=== PATIENT | male | born 1970 | race Caucasian/White ===

== ENCOUNTER 2024-09-26 03:08 | Inpatient (IN) ==
--- NOTE | 2024-09-26 03:33 | Emergency Department Note ---
History of Present Illness General Chief complaint: Cardiac Assessment Stated complaint: BELIEVES THEY ARE HAVING A HEART ATTACK Time Seen by Provider: 09/26/24 03:19 History of Present Illness Maximum Pain Intensity: 7 This 54-year-old male that has not seen a doctor in several years presents ER complaint of severe epigastric pain that radiates to his back. He had zoidu hotdogs for dinner. He does chew tobacco. He drinks alcohol on the weekends. No drug use. Patient denies fever, chills, cough, congestion, history of similar symptoms in the past. No prior heart attack or stroke. Allergies Allergy/AdvReac Type Severity Reaction Status Date / Time No Known Allergies Allergy Unverified 11/08/16 13:08 Past Med/Surg History Problem List Biliary colic (Acute) Acute epigastric pain (Acute) No known health problems Social History Smoking Status: Never smoker Preferred Language: Paraguayan Feels Safe at Home: Yes Review of Systems A total of 10 systems reviewed and were otherwise negative Physical Exam Vital Signs Vital Signs - 24 hr 09/26/24 03:15 09/26/24 03:15 09/26/24 03:18 Temperature 37 C Temperature Source Oral Pulse Rate 71 81 70 Pulse Rate from SpO2 Sensor 70 Respiratory Rate 16 29 H Respiratory Effort / Characteristics Non-Labored Respiratory Depth Normal Blood Pressure 210/120 H 210/120 H Blood Pressure Mean 150 150 Pulse Oximetry 99 100 Oxygen Delivery Method Room Air Sepsis Recent Fever Within 48 Hours No Sepsis New/Unexplained Change in Mental Status No Sepsis Action Taken by Nursing No Action Required 09/26/24 03:30 09/26/24 04:03 09/26/24 05:00 Temperature Temperature Source Pulse Rate 69 62 60 Pulse Rate from SpO2 Sensor 70 62 61 Respiratory Rate 16 24 30 H Respiratory Effort / Characteristics Respiratory Depth Blood Pressure 150/99 H 169/102 H 146/100 H Blood Pressure Mean 116 124 115 Pulse Oximetry 98 98 98 Oxygen Delivery Method Sepsis Recent Fever Within 48 Hours Sepsis New/Unexplained Change in Mental Status Sepsis Action Taken by Nursing VITALS: Vitals are noted on the nurse's note and reviewed by myself. Vital signs hypertensive GENERAL: White male anxious appearing, in no acute distress, nondiaphoretic, well-developed well-nourished. SKIN: Capillary reflex less than 2 seconds. HEENT: Normocephalic. PERRLA. EOMI. Nares patent. Mucous membranes moist. Neck is supple without nuchal rigidity. HEART: Regular rate and rhythm LUNGS: Clear to auscultation bilaterally without wheezes, rales or rhonchi. No retractions or accessory muscle use. ABDOMEN: Positive bowel sounds x 4. Normal tympanic percussion. Soft, tender epigastric region without palpable mass, without masses or organomegaly. Toro sign negative. No guarding or rebound tenderness. no CVA tenderness MUSCULOSKELETAL: No gross musculoskeletal defects. NEURO: Patient was alert and oriented to person place and time. No focal neurological deficits. Course Administered Medications Sodium Chloride (Nss) 1,000 mls @ 80 mls/hr IV .[id number] BANDAR Stop: 09/27/24 04:59 Last Admin: 09/26/24 05:38 Dose: 80 mls/hr Documented By: HANNAH Discontinued Medications Famotidine (Pepcid 20mg Iv Push) 20 mg in 5 mls @ 2.5 mls/min IV NOW STA Stop: 09/26/24 04:16 Last Admin: 09/26/24 04:33 Dose: 2.5 mls/min Documented By: HANNAH Cefoxitin Sodium (Mefoxin) 2,000 mg in 60 mls @ 100 mls/hr IV NOW STA Stop: 09/26/24 05:02 Last Infusion: 09/26/24 05:13 Dose: Infused Documented By: Admin: 09/26/24 04:33 Dose: 100 mls/hr Documented By: HANNAH Ioversol (Optiray 320 125ml) 125 ml IV ONCE ONE Stop: 09/26/24 03:59 Last Admin: 09/26/24 03:58 Dose: 118 ml Documented By: KANNAN Morphine Sulfate (Morphine Sulfate 4 Mg/Ml 1 Ml Carp\Vial) 4 mg IV NOW STA Stop: 09/26/24 03:54 Last Admin: 09/26/24 04:05 Dose: 4 mg Documented By: HANNAH Morphine Sulfate (Morphine Sulfate 4 Mg/Ml 1 Ml Carp\Vial) 4 mg IV NOW STA Stop: 09/26/24 04:16 Last Admin: 09/26/24 05:10 Dose: 4 mg Documented By: HANNAH Nitroglycerin (Nitroglycerin Sl 0.4 Mg/Tab Tab) 0.4 mg SL NOW STA Stop: 09/26/24 03:29 Last Admin: 09/26/24 04:03 Dose: Not Given Documented By: HANNAH Simethicone (Simethicone 80 Mg Chew) 80 mg PO NOW ONE Stop: 09/26/24 03:28 Last Admin: 09/26/24 04:05 Dose: 80 mg Documented By: HANNAH Medical Decision Making Medical Records Attestation: I reviewed the patient's medical records. Home Medications Current Medication List: was personally reviewed by me Laboratory Data Attestation: I reviewed the patient's lab results. 09/26/24 03:20 09/26/24 03:20 Lab Results 09/26/24 09/26/24 Range/Units 03:20 03:31 WBC 8.16 (4.8-10.8) K/ul RBC 5.00 (4.70-6.10) M/uL Hgb 14.8 (14.0-18.0) g/dl POC Hgb 14.6 (14.0-18.0) g/dl Hct 43.4 (42.0-52.0) % POC Hct 43 (42-52) % MCV 86.8 (80.0-100.0) fL MCH 29.6 (25.0-34.0) pg MCHC 34.1 (32.0-36.0) g/dL RDW Std Deviation 39.4 (36.4-46.3) fL RDW Coeff of Johnie 12.6 (11.5-14.5) % Plt Count 310 (130-400) K/uL MPV 10.0 (9.4-12.4) fL Immature Gran % (Auto) 0.4 % Neut % (Auto) 58.9 % Lymph % (Auto) 27.3 % [place] % (Auto) 10.8 % Eos % (Auto) 2.0 % Baso % (Auto) 0.6 % Neut # (Auto) 4.81 (1.40-6.50) K/uL Lymph # (Auto) 2.23 (1.20-3.40) K/uL [place] # (Auto) 0.88 H (0.11-0.59) K/uL Eos # (Auto) 0.16 (0.00-0.50) K/uL Baso # (Auto) 0.05 (0.00-0.20) K/uL Immature Gran # (Auto) 0.03 (0.01-0.20) K/uL POC Sodium 139 (135-144) mmol/L Sodium 139 (136-145) mmol/L POC Potassium 3.6 (3.3-5.0) mmol/L Potassium 3.5 (3.5-5.1) mmol/L POC Chloride 102 (101-112) mmol/L Chloride 102 (98-107) mmol/L Carbon Dioxide 26 (21-32) mmol/L POC Total CO2 24 (24-31) mmol/L Anion Gap 11 (3-11) POC Anion Gap 18.0 (16-25) mmol/L POC BUN 18 (7-18) mg/dl BUN 17 (6-23) mg/dl Creatinine 0.95 (0.6-1.4) mg/dl POC Creatinine 1.0 (0.6-1.3) mg/dl Est Cr Clr Drug Dosing 106.3 ml/min eGFR 95.71 BUN/Creatinine Ratio 17.9 (10-20) Glucose 128 H (70-99(Fasting)) mg/dl POC Glucose (other) 136 H (70-99) mg/dl Calcium 10.2 (8.6-10.3) mg/dl POC Ioniz Calcium Masha 1.12 (1.12-1.32) mmol/l Total Bilirubin 0.4 (0.2-1.0) mg/dl AST 25 (13-39) U/L ALT 27 (7-52) U/L Alkaline Phosphatase 55 (34-104) U/L Troponin I High Sens 4.2 (0-20) pg/ml Total Protein 8.2 (6.0-8.3) gm/dl Albumin 4.8 (3.4-5.0) gm/dl Globulin 3.4 (2.5-4.0) gm/dl Albumin/Globulin Ratio 1.4 (0.9-2) Lipase 23 (11-82) U/L Imaging Data Attestation: I personally reviewed and interpreted this imaging study as follows: Radiologist's Impression: Chest CTA 09/26/24 03:27 Exam(s): CTA CHEST W/WO Contrast IV Amt: 118 ML OPTIRAY 320 EXAM: CT Angiography Chest Without and With Intravenous Contrast CLINICAL HISTORY: Reason for exam: severe pain to back. TECHNIQUE: Axial computed tomographic angiography images of the chest without and with intravenous contrast. CTDI is 26.33 mGy and DLP is 863.55 mGy-cm. Automated exposure control was utilized for the study. A dose lowering technique was utilized adhering to the principles of ALARA. MIP reconstructed images were created and reviewed. CONTRAST: Patient received 118 ML OPTIRAY 320 of IV contrast COMPARISON: No relevant prior studies available. FINDINGS: Pulmonary arteries: Unremarkable. No pulmonary embolism. Aorta: No acute findings. No thoracic aortic aneurysm or dissection. Lungs: Unremarkable. No mass. No consolidation. Pleural space: Unremarkable. No significant effusion. No pneumothorax. Heart: Unremarkable. No cardiomegaly. No significant pericardial effusion. No evidence of RV dysfunction. Bones/joints: No acute fracture. No dislocation. Soft tissues: Unremarkable. Lymph nodes: Unremarkable. No enlarged lymph nodes. Gallbladder and bile ducts: Gallstone near the neck of the gallbladder. There is a suggestion of at least mild gallbladder wall thickening. IMPRESSION: No evidence of thoracic aortic aneurysm or dissection. Gallstone. Suggestion of gallbladder wall thickening. Consider further evaluation with sonography. Electronically signed by: Khanh Harris MD 09/26/24 04:24 AM [facility] Narrative Prior records/ancillary studies reviewed. Triage Nursing notes reviewed. Additional history obtained from family. The patient's history was concerning for chest pain. Differential diagnosis: Etiologies such as cardiac ischemia, aortic dissection, pulmonary embolism, pneumonia, pneumothorax, musculoskeletal, infections, pericarditis, myocarditis, esophageal rupture, gastrointestinal, as well as others were entertained. Physical examination: As above. ER treatment provided: An order was placed for continuous cardiac monitoring. The monitor shows a rate of 60-100 with a sinus rhythm per my interpretation. Morphine, Zofran and simethicone were ordered Protonix and Pepcid were ordered Limited Point of Care FAST Ultrasound performed by me: Indication: Rule out dissection Findings: Limited cardiac ultrasonography via subxiphoid and parasternal long view showed cardiac wall motion activity, no pericardial fluid, no tamponade. Limited chest ultrasound revealed bilateral lung sliding. Limited abdominal ultrasound revealed no free fluid within Kulkarni's pouch, splenorenal space, or the pouch of [place]. Impression: Negative FAST exam. On reassessment the patient felt better. Diagnostic interpretation by me: #1 the electrocardiogram was Ordered for chest pain EKG: Normal sinus, incomplete right bundle, minimal ST elevation in V2 and V3, rate of 81. No old EKG. Impression normal sinus rhythm with a incomplete right bundle with minimal ST elevation in V2 and V3 independently interpreted by myself I think arrhythmia is unlikely. EKG shows normal sinus rhythm with no interval abnormalities such as QT prolongation or WPW. There are no findings to suggest Brugada syndrome. Cardiac monitoring in the emergency department reveals no tachycardic or bradycardic dysrhythmia. Hypertrophic cardiomyopathy was considered but there are no clear historical elements pointing toward this. EKG is not suggestive. The QRS voltage is not extremely large and there are no suggestive Q waves. #2 EKG ordered for chest pain EKG: Normal sinus, incomplete right bundle, no acute ST-T wave changes, rate of 61. Impression normal sinus rhythm incomplete right bundle independently interpreted by myself The labs Independently Interpreted by myself revealed negative troponin. Stable H&H. Normal LFTs Imaging studies: Chest x-ray with no acute consolidation, pneumothorax or free air per my independent interpretation CT and ultrasound were reviewed and read by radiology as above HEART SCORE: Hx: high/mod/low suspicion: 1 ECG: ST depression/nonspecific changes/normal: 1 Age: Greater than 65/45-64/less than 45: 1 Risk factors: (Hypertension, hyperlipidemia, diabetes, coronary disease, tobacco use, cocaine use): 1 Troponin: Greater than 2 times normal limits/1-2 times normal limits/normal: 0 Total: 4 Consultation: A consultation was placed with the surgical team. The case was discussed and diagnostics were reviewed. The patient was evaluated in the ER for further treatment. Exam and history seem consistent with acute epigastric pain with concerns for acute cholecystitis. Patient was medicated as above. He was still in severe amount of pain. EKG is unchanged. Negative troponin. Stable labs. Surgery was consulted and will evaluate the patient. Patient is agreeable to treatment plan of admission. By the evaluation outlined above emergent etiologies such as cardiac ischemia, aortic dissection, pulmonary embolism, pneumonia, pneumothorax, pericarditis, myocarditis, gastrointestinal, as well as others were deemed relatively unlikely. The pt informed about the findings as listed above. All questions were answered and pleased with the treatment. The chart was completed utilizing [employer] Speech voice recognition software. Grammatical errors, random word insertions, pronoun errors, and incomplete sentences are an occassional consequence of this system due to software limitations, ambient noise, and hardware issues. Any formal questions or concerns about the content, text, or information contained within the body of this dictation should be directly addressed to the physician speech pathologist assistant for clarification. Impression & Plan Acute epigastric pain, Biliary colic Discharge Plan Visit Data Chief Complaint: Cardiac Assessment Stated Complaint: BELIEVES THEY ARE HAVING A HEART ATTACK ED Provider: Coby Cheek ED Midlevel Provider: Ena Johnson Discharge Problem: Acute epigastric pain, Biliary colic Patient Disposition: Being Evaluated by Surgeon Condition: Good
[2024-09-26 03:36] LABS: Basophils # (auto) 0.05 K/uL (0.00-0.20); Basophils % (auto) 0.6 %; Eosinophils # (auto) 0.16 K/uL (0.00-0.50); Hematocrit (blood only) 43.4 % (42.0-52.0); Hemoglobin 14.8 g/dl (14.0-18.0); Immature Granulocytes # (auto) 0.03 K/uL (0.01-0.20); Immature Granulocytes % (auto) 0.4 %; Lymphocytes # (auto) 2.23 K/uL (1.20-3.40); Lymphocytes % (auto) 27.3 %; Mean Corpuscular Hemoglobin 29.6 pg (25.0-34.0); Mean Corpuscular Hgb Conc 34.1 g/dL (32.0-36.0); Mean Corpuscular Volume 86.8 fL (80.0-100.0); Monocytes # (auto) 0.88 K/uL (0.11-0.59); Monocytes % (auto) 10.8 %; Neutrophils # (auto) 4.81 K/uL (1.40-6.50); Neutrophils % (auto) 58.9 %; Platelet Count 310 K/uL (130-400); RDW Coefficient of Variation 12.6 % (11.5-14.5); RDW Standard Deviation 39.4 fL (36.4-46.3); White Blood Count 8.16 K/ul (4.8-10.8)
[2024-09-26 03:43] LABS: iSTAT Hemoglobin 14.6 g/dl (14.0-18.0); iSTAT Ionized Calcium 1.12 mmol/l (1.12-1.32); iSTAT Potassium 3.6 mmol/L (3.3-5.0)
[2024-09-26 03:55] LABS: Albumin Globulin Ratio 1.4 (0.9-2); Albumin Level 4.8 gm/dl (3.4-5.0); BUN Creatinine Ratio 17.9 (10-20); Bilirubin,Total 0.4 mg/dl (0.2-1.0); Calcium 10.2 mg/dl (8.6-10.3); Creatinine Clr Calc Pharmacy 106.3 ml/min; Globulin 3.4 gm/dl (2.5-4.0); Potassium 3.5 mmol/L (3.5-5.1); Total Protein 8.2 gm/dl (6.0-8.3)
[2024-09-26] MEDS: OPTIRAY 320 125ml IV ONE (03:58)
[2024-09-26 04:02] LABS: Troponin I High Sensitivity 4.2 pg/ml (0-20)
[2024-09-26] MEDS: NITROGLYCERIN SL 0.4 MG/TAB TAB SL STA (04:03)
[2024-09-26] MEDS: MoRPHine SULFATE 4 MG/ML 1 ML CARP\\VIAL IV STA ×2 (04:05→05:10)
[2024-09-26] MEDS: SIMETHICONE 80 MG CHEW PO ONE (04:05)
--- NOTE | 2024-09-26 04:25 | CT Scan Report ---
Exam(s): CTA CHEST W/WO Contrast IV Amt: 118 ML OPTIRAY 320 EXAM: CT Angiography Chest Without and With Intravenous Contrast CLINICAL HISTORY: Reason for exam: severe pain to back. TECHNIQUE: Axial computed tomographic angiography images of the chest without and with intravenous contrast. CTDI is 26.33 mGy and DLP is 863.55 mGy-cm. Automated exposure control was utilized for the study. A dose lowering technique was utilized adhering to the principles of ALARA. MIP reconstructed images were created and reviewed. CONTRAST: Patient received 118 ML OPTIRAY 320 of IV contrast COMPARISON: No relevant prior studies available. FINDINGS: Pulmonary arteries: Unremarkable. No pulmonary embolism. Aorta: No acute findings. No thoracic aortic aneurysm or dissection. Lungs: Unremarkable. No mass. No consolidation. Pleural space: Unremarkable. No significant effusion. No pneumothorax. Heart: Unremarkable. No cardiomegaly. No significant pericardial effusion. No evidence of RV dysfunction. Bones/joints: No acute fracture. No dislocation. Soft tissues: Unremarkable. Lymph nodes: Unremarkable. No enlarged lymph nodes. Gallbladder and bile ducts: Gallstone near the neck of the gallbladder. There is a suggestion of at least mild gallbladder wall thickening. IMPRESSION: No evidence of thoracic aortic aneurysm or dissection. Gallstone. Suggestion of gallbladder wall thickening. Consider further evaluation with sonography. Electronically signed by: Khanh Harris MD 09/26/24 04:24 AM
[2024-09-26] MEDS: cefOXitin 2,000 MG/60 ML BAG IV STA (04:33)
[2024-09-26] MEDS: FAMOTIDINE 20MG IV PUSH 20 MG/5 ML SYR IV STA (04:33)
[2024-09-26] MEDS ORDERED: HYDROmorphone INJ 0.5 MG/0.5 ML SYR IV PRN (04:55)
[2024-09-26] MEDS ORDERED: ACETAMINOPHEN 1,000 MG/100 ML VIAL IV PRN (04:58)
[2024-09-26] MEDS ORDERED: MoRPHine SULFATE 4 MG/ML 1 ML CARP\\VIAL IV PRN ×2 (04:58→11:47)
[2024-09-26] MEDS ORDERED: ONDANSETRON INJ 2 MG/ML 2 ML VIAL IV PRN ×2 (04:58→08:03)
--- NOTE | 2024-09-26 04:58 | History & Physical Report ---
Date of Service September 26, 2024 Assessment & Plan (1) Biliary colic: Plan: Due to the patient's findings on imaging and his presenting symptomatology he will be admitted to the surgical service on a MedSurg/telemetry floor proceeding as follows: Analgesics will be provided Antiemetics to be provided He will be made n.p.o. Will hydrate gently with IV fluids while he is n.p.o. Antibiotics will be continuedcefoxitin has been initiated in the emergency department As the patient has not seen a doctor in several years and he did have some radiation of the pain into his chest along with the fact that he has a significant family history of coronary artery disease and uses smokeless tobacco we will request a medical consultation for further evaluation of this. I discussed this case with the hospitalist team. They have requested that I order a repeat troponin and I have ordered this lab to be drawn at 8:00 AM this morning. Pending his medical evaluation he will tentatively be scheduled for cholecystectomy with Dr. Alcala on 09/26/2024. Additional recommendations will be forthcoming based on the patient's pending medical evaluation and further clinical course as it unfolds Will use SCDs for DVT prevention, no chemical means due to potential surgery He will be a level 1 full code History of Present Illness Chief Complaint: Biliary colic Primary Care Provider: NO PCP This is a 54-year-old male who presented to the emergency department secondary to epigastric/upper abdominal pain that has been present for several days. The patient notes that the pain seems to be exacerbated after eating and seems to radiate into the left side of his chest. He has had some associated nausea and vomiting but denies any fevers, shakes, or chills. Prior to this symptomatology beginning several days ago he has not noted any postprandial pain in the preceding weeks to months. Patient notes that he has never had any abdominal surgery. I did asked the patient about his past medical history and he denies any known medical problems or taking any medicines. He does admit that he has not seen a doctor in "many years". Patient notes that he does have a history of chewing tobacco but does not smoke cigarettes. He notes that from time to time if he goes up and down steps he does get somewhat short winded. He notes he can walk easily 1 mile on a flat surface without chest pain or shortness of breath. Upon further questioning though, he does note an occasional what he describes as a "twinge" of chest discomfort that only lasts several seconds and self resolves. Patient does have a significant family history of coronary artery diseasehe notes his mother suffered a heart attack when she was in her 30s and ultimately in her 70s from congestive heart failure. Since arrival to the hospital the patient has had labs and imaging which I independent reviewed. A CT scan of the chest showed no evidence of thoracic aortic aneurysm or dissection. There was a gallstone noted near the neck of the gallbladder on this study with some mild gallbladder wall thickening. The chest x-ray did not show any evidence of pneumonia. A gallbladder ultrasound again showed a gallstone in the gallbladder neck. (This study is not formally read by radiology but the technologist performing the study did not note any gallbladder wall thickening or biliary ductal dilatation) labs included CBC were white blood cell count, hemoglobin, hematocrit, platelet count were normal. Chemistry profile showed sodium and potassium as well as the BUN and creatinine were normal. There is no elevation of patient's LFTs or lipase. Patient has had 2 EKGs since arrival to the emergency department neither of which showed any changes indicative of acute ischemia. At the time of my interview the patient was not in any distress but he continued to have some pain in his upper abdomen. Concerning past medical history the patient denies any medical problems Concerning past surgical history he denies any prior surgeries Concerning family history it is significant for coronary artery disease Concerning social history he does not smoke but does use smokeless tobacco Allergies Allergy/AdvReac Type Severity Reaction Status Date / Time No Known Allergies Allergy Unverified 11/08/16 13:08 Home Medications Medication Instructions Recorded Confirmed Type oxycodone 5 mg tablet 5 - 10 mg (1 - 2 x 5 mg) PO 09/26/24 Rx .[id number] PRN pain, for initial therapy, max 6 tabs per day #15 tabs Past Med/Surg History Problem List (Updated 09/26/24 @ 05:58 by Kayla Mcdowell DO) Biliary colic (Acute) Acute epigastric pain (Acute) Medical History (Updated 09/26/24 @ 05:58 by Kayla Mcdowell DO) No known health problems Family History (Updated 09/26/24 @ 05:57 by Kayla Mcdowell DO) Other Coronary heart disease Social History Smoking Status: Never smoker Tobacco Type: Smokeless Tobacco (Dip or Chew) Do You Dip or Chew Tobacco: Yes (1 can/day); Hx Alcohol Use: Yes Alcohol type: beer Hx Substance Use: No Preferred Language: Uzbek Communication Ability: Effective Rn Labor And Delivery Required: No Beliefs That Will Affect Care: None Current Living Situation: Family and Significant Other Feels Safe at Home: Yes Assistive Devices: None Review of Systems Review of Systems: All systems reviewed & are unremarkable except as noted in HPI & below Physical Exam Constitutional: WD/WN, vitals as above Eyes: + anicteric sclerae ENMT: Ears: no external ear abnormality Mouth: no oropharynx abnormality Neck: trachea midline Respiratory: normal respiratory effort; no respiratory distress and no labored breathing Cardiovascular: Rate/Rhythm: regular rate and regular rhythm Gastrointestinal (Abdomen): Abdomen is soft and nondistended. It is nonrigid. Patient did have pain with palpation in the upper abdomen which appear to be greatest in the epigastric area as well as the right upper quadrant. There is no rebound tenderness or guarding. Musculoskeletal: No calf tenderness, feet are warm and well-perfused Skin: no jaundice Neurologic: moves all extremities Psychiatric: Orientation: alert and oriented x 3 Affect: + anxious affect Results & Data Results & Data Vital Signs (Past 12 Hours) Vital Signs Temp Pulse Resp BP Pulse Ox O2 Del Method 09/26/24 04:03 62 24 169/102 H 98 09/26/24 03:30 69 16 150/99 H 98 09/26/24 03:18 70 29 H 210/120 H 100 09/26/24 03:15 81 09/26/24 03:15 37 C 71 16 210/120 H 99 Room Air Supervising Physician Co-Signing Physician Notes I have seen and examined this patient this am. He will be taken to the OR for robotic/laparoscopic cholecystectomy and all other indicated procedures. The details of the procedure have been explained to him including the risks and benefits. Consent was obtained. PG Care Time/CCT Total # of Minutes Spent Total Time Spent with Patient: Total time spent is greater than 50% in coordination of care (as documented) at patient's floor/unit and/or counseling patient: Coding Level of Care Code 04828 INT INP/OBS CARE 3/75MIN Diagnoses Biliary colic K80.50
[2024-09-26] MEDS: SODIUM CHLORIDE 0.9% 1,000 ML IV SCH (05:38)
--- NOTE | 2024-09-26 05:56 | Ultrasound Report ---
Exam(s): US RUQ EXAM: US Abdomen Limited, Right Upper Quadrant CLINICAL HISTORY: Reason for exam: ruq pain, ? GB. TECHNIQUE: Real-time ultrasound of the right upper quadrant with image documentation. COMPARISON: No relevant prior studies available. FINDINGS: Liver: Unremarkable. No mass. No intrahepatic bile duct dilation. Gallbladder: Distended gallbladder with multiple stones. No wall thickening or surrounding fluid. Common bile duct: Unremarkable as visualized. No stones. No dilation. Pancreas: Not well visualized. Right kidney: Unremarkable. No stones. No solid mass. No hydronephrosis. IMPRESSION: Gallstones. No wall thickening. No bile duct dilatation. Electronically signed by: Khanh Harris MD 09/26/24 05:55 AM
[2024-09-26] MEDS: HYDROmorphone INJ 0.5 MG/0.5 ML SYR IV STA (05:57)
--- NOTE | 2024-09-26 06:08 | Hospitalist Consultation ---
Date of Consultation September 26, 2024 Assessment & Plan (1) Acute epigastric pain: 54yo male presenting with severe, acute epigastric abdominal pain. Patient afebrile, HD stable in the ER. CT as above with gallstones. No wall thickening present on gallbladder US. Patient is being managed by General Surgery team - tentatively planning for cholecystectomy. Patient has not seen a physician for approximately 5 years. He is unaware of any significant medical problems. 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 He denies exertional chest pain or SOB that limits activity. Initial troponin value is within normal range at 4.2. EKG without acute ischemic changes. A repeat troponin has been ordered to document trend. Per RCRI Criteria patient is Class I Risk (0 points) and may proceed to surgery with no additional testing. Will order HgbA1C and Lipid panel for routine health screening given patient's absence from medical care for the last few years. Assessment/Plan: Patient will be admitted to medical with telemetry NPO IVF - NSS at 80mL?hr Pain control with Tylenol and Morphine PRN - one dose of Dilaudid has been ordered Zofran as needed Cefoxitin Will continue to follow History of Present Illness Reason for Consultation: medical management Attending Physician: Ashley Lewis DO History of Present Illness Jose Vitale is a pleasant 54yo male with no significant past medical history presenting from home with severe, acute abdominal pain. Pain is in across the upper abdomen with radiation into the back as well as nausea. In the ER patient is hypertensive, afebrile ER Course: Simethicone Morphine 4mg IV x 2 doses Pepcid 20mg IV Cefoxitin NSS x 1L Allergies Allergy/AdvReac Type Severity Reaction Status Date / Time No Known Allergies Allergy Unverified 11/08/16 13:08 Patient History Medical History (Updated 09/26/24 @ 05:58 by Kayla Mcdowell DO) No known health problems Family History (Updated 09/26/24 @ 05:57 by Kayla Mcdowell DO) Other Coronary heart disease Social History Smoking Status: Never smoker Preferred Language: Congolese Feels Safe at Home: Yes Review of Systems Review of Systems: All systems reviewed & are unremarkable except as noted in HPI & below Physical Exam Physical Exam: General: patient resting comfortably, appears uncomfortable, non-toxic in appearance, AA&O x 4 Skin: warm, dry, intact, no rashes or lesions HEENT: NC/AT, PERRL, EOMI, anicteric sclera, conjunctiva without injection, external ear normal to inspection and nontender, nares patent, moist mucus membranes, dentition intact, no oropharyngeal lesions, neck supple, trachea midline, no LAD, no thyromegaly, no JVD Heart: +S1/S2, regular, no m/r/g Lungs: equal air entry bilaterally, no rales/rhonchi/wheezes Abd: +BS, soft, ND, diffusely tender with some voluntary guarding, no masses/organomegaly/ascites Ext: warm, 2+ pulses in UE/LE bilaterally, no clubbing/cyanosis or edema Neuro: nonfocal, patient AA&O x 4, speech intact, no facial droop, moving all extremities on command with equal strength 5/5 Results & Data Results & Data Vital Signs (Past 12 Hours) Vital Signs Temp Pulse Resp BP Pulse Ox O2 Del Method 09/26/24 05:30 62 23 95 09/26/24 05:15 61 18 157/94 H 09/26/24 05:00 60 30 H 146/100 H 98 09/26/24 04:03 62 24 169/102 H 98 09/26/24 03:30 69 16 150/99 H 98 09/26/24 03:18 70 29 H 210/120 H 100 09/26/24 03:15 81 09/26/24 03:15 37 C 71 16 210/120 H 99 Room Air Laboratory Results Laboratory Results WBC 8.16 K/ul (4.8-10.8) 09/26/24 03:20 RBC 5.00 M/uL (4.70-6.10) 09/26/24 03:20 Hgb 14.8 g/dl (14.0-18.0) 09/26/24 03:20 POC Hgb 14.6 g/dl (14.0-18.0) 09/26/24 03:31 Hct 43.4 % (42.0-52.0) 09/26/24 03:20 POC Hct 43 % (42-52) 09/26/24 03:31 MCV 86.8 fL (80.0-100.0) 09/26/24 03:20 MCH 29.6 pg (25.0-34.0) 09/26/24 03:20 MCHC 34.1 g/dL (32.0-36.0) 09/26/24 03:20 RDW Std Deviation 39.4 fL (36.4-46.3) 09/26/24 03:20 RDW Coeff of Johnie 12.6 % (11.5-14.5) 09/26/24 03:20 Plt Count 310 K/uL (130-400) 09/26/24 03:20 MPV 10.0 fL (9.4-12.4) 09/26/24 03:20 Immature Gran % (Auto) 0.4 % 09/26/24 03:20 Neut % (Auto) 58.9 % 09/26/24 03:20 Lymph % (Auto) 27.3 % 09/26/24 03:20 [place] % (Auto) 10.8 % 09/26/24 03:20 Eos % (Auto) 2.0 % 09/26/24 03:20 Baso % (Auto) 0.6 % 09/26/24 03:20 Neut # (Auto) 4.81 K/uL (1.40-6.50) 09/26/24 03:20 Lymph # (Auto) 2.23 K/uL (1.20-3.40) 09/26/24 03:20 [place] # (Auto) 0.88 K/uL (0.11-0.59) H 09/26/24 03:20 Eos # (Auto) 0.16 K/uL (0.00-0.50) 09/26/24 03:20 Baso # (Auto) 0.05 K/uL (0.00-0.20) 09/26/24 03:20 Immature Gran # (Auto) 0.03 K/uL (0.01-0.20) 09/26/24 03:20 POC Sodium 139 mmol/L (135-144) 09/26/24 03:31 Sodium 139 mmol/L (136-145) 09/26/24 03:20 POC Potassium 3.6 mmol/L (3.3-5.0) 09/26/24 03:31 Potassium 3.5 mmol/L (3.5-5.1) 09/26/24 03:20 POC Chloride 102 mmol/L (101-112) 09/26/24 03:31 Chloride 102 mmol/L (98-107) 09/26/24 03:20 Carbon Dioxide 26 mmol/L (21-32) 09/26/24 03:20 POC Total CO2 24 mmol/L (24-31) 09/26/24 03:31 Anion Gap 11 (3-11) 09/26/24 03:20 POC Anion Gap 18.0 mmol/L (16-25) 09/26/24 03:31 POC BUN 18 mg/dl (7-18) 09/26/24 03:31 BUN 17 mg/dl (6-23) 09/26/24 03:20 Creatinine 0.95 mg/dl (0.6-1.4) 09/26/24 03:20 POC Creatinine 1.0 mg/dl (0.6-1.3) 09/26/24 03:31 Est Cr Clr Drug Dosing 106.3 ml/min 09/26/24 03:20 eGFR 95.71 09/26/24 03:20 BUN/Creatinine Ratio 17.9 (10-20) 09/26/24 03:20 Glucose 128 mg/dl (70-99(Fasting)) H 09/26/24 03:20 POC Glucose (other) 136 mg/dl (70-99) H 09/26/24 03:31 Calcium 10.2 mg/dl (8.6-10.3) 09/26/24 03:20 POC Ioniz Calcium Masha 1.12 mmol/l (1.12-1.32) 09/26/24 03:31 Total Bilirubin 0.4 mg/dl (0.2-1.0) 09/26/24 03:20 AST 25 U/L (13-39) 09/26/24 03:20 ALT 27 U/L (7-52) 09/26/24 03:20 Alkaline Phosphatase 55 U/L (34-104) 09/26/24 03:20 Troponin I High Sens 4.2 pg/ml (0-20) 09/26/24 03:20 Total Protein 8.2 gm/dl (6.0-8.3) 09/26/24 03:20 Albumin 4.8 gm/dl (3.4-5.0) 09/26/24 03:20 Globulin 3.4 gm/dl (2.5-4.0) 09/26/24 03:20 Albumin/Globulin Ratio 1.4 (0.9-2) 09/26/24 03:20 Lipase 23 U/L (11-82) 09/26/24 03:20 Impressions Chest CTA 09/26/24 03:27 Exam(s): CTA CHEST W/WO Contrast IV Amt: 118 ML OPTIRAY 320 EXAM: CT Angiography Chest Without and With Intravenous Contrast CLINICAL HISTORY: Reason for exam: severe pain to back. TECHNIQUE: Axial computed tomographic angiography images of the chest without and with intravenous contrast. CTDI is 26.33 mGy and DLP is 863.55 mGy-cm. Automated exposure control was utilized for the study. A dose lowering technique was utilized adhering to the principles of ALARA. MIP reconstructed images were created and reviewed. CONTRAST: Patient received 118 ML OPTIRAY 320 of IV contrast COMPARISON: No relevant prior studies available. FINDINGS: Pulmonary arteries: Unremarkable. No pulmonary embolism. Aorta: No acute findings. No thoracic aortic aneurysm or dissection. Lungs: Unremarkable. No mass. No consolidation. Pleural space: Unremarkable. No significant effusion. No pneumothorax. Heart: Unremarkable. No cardiomegaly. No significant pericardial effusion. No evidence of RV dysfunction. Bones/joints: No acute fracture. No dislocation. Soft tissues: Unremarkable. Lymph nodes: Unremarkable. No enlarged lymph nodes. Gallbladder and bile ducts: Gallstone near the neck of the gallbladder. There is a suggestion of at least mild gallbladder wall thickening. IMPRESSION: No evidence of thoracic aortic aneurysm or dissection. Gallstone. Suggestion of gallbladder wall thickening. Consider further evaluation with sonography. Electronically signed by: Khanh Harris MD 09/26/24 04:24 AM Gallbladder Ultrasound 09/26/24 03:53 Exam(s): US RUQ EXAM: US Abdomen Limited, Right Upper Quadrant CLINICAL HISTORY: Reason for exam: ruq pain, ? GB. TECHNIQUE: Real-time ultrasound of the right upper quadrant with image documentation. COMPARISON: No relevant prior studies available. FINDINGS: Liver: Unremarkable. No mass. No intrahepatic bile duct dilation. Gallbladder: Distended gallbladder with multiple stones. No wall thickening or surrounding fluid. Common bile duct: Unremarkable as visualized. No stones. No dilation. Pancreas: Not well visualized. Right kidney: Unremarkable. No stones. No solid mass. No hydronephrosis. IMPRESSION: Gallstones. No wall thickening. No bile duct dilatation. Electronically signed by: Khanh Harris MD 09/26/24 05:55 AM ECG Additional Comments: EKG per my interpretation with NSR at 81bpm, DN=717, TOT=974, TLz=176, no acute ischemic changes PG Care Time/CCT Total # of Minutes Spent Total Time Spent with Patient: Total time spent is greater than 50% in coordination of care (as documented) at patient's floor/unit and/or counseling patient: Coding Level of Care Code 51112 IN/OBS CONSULT LVL 3,45M Diagnoses Acute epigastric pain R10.13
[2024-09-26] MEDS: PANTOprazole 40 MG/10 ML SYR IV ONE (06:47)
--- NOTE | 2024-09-26 06:49 | XRay Report ---
XR chest 1V portable CLINICAL HISTORY: Chest pain, nonspecific TECHNIQUE: Single frontal radiograph of the chest was obtained. Comparison: None available at the time of this dictation. FINDINGS: No lines and tubes are seen. The cardiomediastinal silhouette is normal. The lungs are clear. No evid ence of pleural effusion or pneumothorax. IMPRESSION: No acute chest disease. ACT 112: Negative or not required by law. Electronically signed by: Chapito Kong M.D. 09/26/2024 6:48 AM
[2024-09-26] MEDS ORDERED: PROPOFOL IV EMULSION 10 MG/ML 20 ML VIAL IV ONE (07:02)
[2024-09-26] MEDS ORDERED: ROCURONIUM BROMIDE 10 MG/ML 5 ML VIAL IV ONE ×2 (07:02→09:55)
[2024-09-26] MEDS ORDERED: SODIUM CHLORIDE 0.9% PF INJ 10 ML VIAL ONE (07:02)
[2024-09-26] MEDS ORDERED: ONDANSETRON INJ 2 MG/ML 2 ML VIAL ONE (07:02)
[2024-09-26] MEDS ORDERED: LIDOCAINE 2% 2 ML VIAL/AMP(20MG/ML) INFIL ONE (07:02)
[2024-09-26] MEDS ORDERED: fentaNYL citrate PF 100 MCG/2 ML VIAL ONE (07:02)
[2024-09-26] MEDS ORDERED: diphenhydrAMINE 50 MG/ML VIAL ONE (07:02)
[2024-09-26] MEDS ORDERED: DEXAMETHASONE SOD INJ 4 MG/ML VIAL ONE (07:02)
[2024-09-26] MEDS ORDERED: SUGAMMADEX SODIUM 200 MG/2 ML VIAL IV ONE (07:03)
[2024-09-26] MEDS ORDERED: MIDAZOLAM HCL 1 MG/ML 2ML VIAL ONE (07:03)
[2024-09-26] MEDS ORDERED: ePHEDrine sulfate 50 MG/5 ML SYR ONE (07:03)
[2024-09-26] MEDS ORDERED: PHENYLEPHRINE 100MCG/ML 10ML SYR IV ONE (07:03)
[2024-09-26] MEDS ORDERED: GLYCOPYRROLATE 0.2 MG/ML VIAL ONE (07:04)
[2024-09-26] MEDS ORDERED: KETOROLAC 30 MG/ML VIAL ONE (07:04)
[2024-09-26] MEDS ORDERED: ATROPINE SULFATE 0.1 MG/ML 10ML SYR IV PRN (08:03)
[2024-09-26] MEDS ORDERED: HYDROmorphone INJ 2 MG/ML SYR/VIAL IV PRN (08:03)
[2024-09-26] MEDS ORDERED: fentaNYL citrate PF 100 MCG/2 ML VIAL IV PRN (08:03)
[2024-09-26] MEDS ORDERED: PROMETHAZINE HCL 6.25 MG in SODIUM CHLORIDE 0.9% 50 ML IV PRN (08:03)
[2024-09-26] MEDS ORDERED: ePHEDrine sulfate 50 MG/ML AMP IV PRN (08:03)
--- NOTE | 2024-09-26 08:03 | Anesthesiology Consultation ---
Date of Service September 26, 2024 Assessment & Plan Chart Review Chart Review: Acceptable Risk for Surgery and Patient NOT seen in Pre Admission Testing Consults Requested none ASA ASA2 Proposed Anesthesia Anesthesia Type: General Risk / Benefits Reviewed With: PT / POA / Parent / Guardian, Accepts Plan and Informed Consent Obtained History Surgery Operation Date: 09/26/24 07:00 Proposed Procedures p Robotic Laparoscopic Cholecystectomy - Ashley Lewis DO Height/Weight Height: 5 ft 11 in Weight: 98.6 kg Allergies Allergy/AdvReac Type Severity Reaction Status Date / Time No Known Allergies Allergy Unverified 11/08/16 13:08 Medications Home Medications Medication Instructions Recorded Confirmed Last Taken oxycodone 5 mg tablet 5 - 10 mg (1 - 2 x 5 mg) PO 09/26/24 Unknown .[id number] PRN pain, for initial therapy, max 6 tabs per day #15 tabs Active Medications Generic Name Dose Route Start Last Admin Trade Name Freq PRN Reason Stop Dose Admin Sodium Chloride 1,000 mls @ 80 mls/hr 09/26/24 05:00 09/26/24 05:38 Nss IV 09/27/24 04:59 80 mls/hr .[id number] BANDAR Administration NPO Date Last Intake of Fluids: 09/26/24 Time Last Intake of Fluids: 03:00 Last Intake of Fluids Comment: sip Date Last Intake of Solids: 09/25/24 Time Last Intake of Solids: 20:00 Past Medical History Medical History (Updated 09/26/24 @ 05:58 by Kayla Mcdowell DO) No known health problems Exercise / Class Metabolic Activity II 4-5 Yardwork/Stairs/Walk up hill Past Family History Family History (Updated 09/26/24 @ 05:57 by Kayla Mcdowell DO) Other Coronary heart disease Past Anesthesia History No Hx of Anesthesia Complications and No Family Hx of Anesthesia Complications History of PONV No Hx of PONV and No Hx of Motion Sickness Social History Smoking Status: Never smoker Do You Dip or Chew Tobacco: Yes (1 can/day) Hx Alcohol Use: Yes Alcohol type: beer alcohol intake frequency: a few times a month Hx Substance Use: No Physical Exam Vital Signs Last Vital Signs Temp 36.7 C 09/26/24 07:41 Pulse 65 09/26/24 07:41 Resp 20 09/26/24 07:41 BP 140/83 09/26/24 07:41 Pulse Ox 97 09/26/24 07:41 O2 Del Method Room Air 09/26/24 07:41 ENMT Mouth: no dentition abnormality Thyromental Distance: > or= 3.5 Finger Breadths Mallampati Class: II Neck normal visual inspection Respiratory normal respiratory effort Auscultation: lungs clear to auscultation bilaterally Cardiovascular Rate/Rhythm: regular rate and regular rhythm Psychiatric Orientation: alert Testing Laboratory Results 09/26/24 03:20 09/26/24 03:20 09/26/24 03:31 POC Glucose (other) 136 H
[2024-09-26 08:32] LABS: Estimated Average Glucose 111 mg/dl; Hemoglobin A1C 5.5 % (4.5-5.6)
[2024-09-26] MEDS: cefOXitin 2,000 MG in DEXTROSE 5 % MINI-B 50 ML IV SCH (09:35)
[2024-09-26] MEDS ORDERED: cefOXitin SOD 1,000 MG VIAL ONE ×2 (09:38)
[2024-09-26] MEDS: INDOCYANINE GREEN 25 MG VIAL INJ ONE (09:46)
[2024-09-26] MEDS: BUPIVACAINE 0.5 % 5 MG/1 ML MPF 30ML VIAL ONE (10:54)
--- NOTE | 2024-09-26 10:59 | Operative Report ---
PG Post Operative Report Pre & Post Diagnosis Operation Date: 09/26/24 07:00 Pre-Op Diagnosis: Biliary colic Post-Op Diagnosis: Biliary colic I identified the patient and participated in the time-out.: Yes Procedure Operation Date: 09/26/24 07:00 Actual Procedures p Robotic Assisted Laparoscopic Cholecystectomy(Not Applicable) - Ashley Lewis DO Surgeon Ashley Lewis DO Ordering Machine Operator Pal Kimbrough NP Estimated Blood Loss 5 Findings Consistent with Post-Op Diagnosis Specimens Gallbladder Anesthesia Type General Complications None Indications epigastric and RUQ pain. Cholelithiasis with stone wedged in the neck of the GB and ongoing pain Description of Procedure The patient was brought back to the operating room and placed on the operating room table in supine position. He was connected to cardiac and oxygen monitoring, supplemental O2 was provided and SCDs were applied to bilateral lower extremities. The patient was administered general anesthesia and a secure airway was established. The abdomen was prepped and draped in typical sterile fashion and a timeout was conducted. Local anesthetic was used anesthetize the skin and subcutaneous tissue prior to making all incisions. All incisions were made with a 15 blade. Intra-abdominal access was gained using a Veress needle at the lateral aspect of the umbilicus. This was confirmed with a saline drop test. CO2 insufflation was initiated to create pneumoperitoneum to local pressure 15 mmHg. Once this pressure was reached, an 8 mm robotic trocar was inserted using direct visualization with an Optiview port and a 5 mm laparoscope. There was no injury caused to intra-abdominal contents during the insertion of the Veress needle or trocar. 2 additional 8mm robotic trocars were inserted at the right and left upper quadrants using direct visualization. A 5 mm first assistant port was inserted at the right upper quadrant using direct visualization. The OR table was positioned in reverse Trendelenburg and left side down. The robot was deployed and docked to the trocars. Instruments were inserted. At the console, the gallbladder was identified very thickened and distended sitting erect extending above the liver at the right upper quadrant. The gallbladder was cannulated superiorly by the first assistant port and adhesions were noted to surrounding omental and serosal tissue. Adhesions were lysed using cautery. Through this dissection process the gallbladder was able to be retracted further superiorly to aid in better exposure and further dissection. The infundibulum of the gallbladder was grasped and retracted superiorly and laterally. The cystic triangle was dissected into [place]. The 2 Hem-o-walt clips were placed proximally on each the cystic duct and artery, single Hem-o-walt clip was placed distally on each of these structures. Each structure was transected. The gallbladder was cauterized away from the liver bed. The liver bed was thoroughly inspected and small amounts of oozing identified were controlled with cautery. The area was copiously irrigated and dried. Hemostasis was checked for multiple times and there was no active bleeding. The gallbladder was placed in an Endo Catch bag and removed from the abdomen. Due to the its thickening and enlarged gallstones, the skin incision and muscle incision needed to be expanded at the right upper quadrant to aid in removal. Once this was removed it was placed in a labeled container sent to pathology for further analysis. This incision was closed using a Stewart Elam device and 0 Vicryl suture. The right upper quadrant was thoroughly inspected for hemostasis multiple times. There was still no bleeding. Instruments were all removed, CO2 insufflation was discontinued. The robot was docked and removed away from the O R table. Excess pneumoperitoneum was evacuated. The trocars were removed. The the skin incisions were closed with 4-0 Monocryl. The abdomen was wiped clean with a saline soaked lap pad and dried. The incisions were then sealed with Dermabond. The patient tolerated the procedure well. He was awakened from anesthesia, the secure airway was removed and he was transferred to recovery in stable condition. I attest to the content of the Intraoperative Record and any orders documented therein. Any exceptions are noted below.
[2024-09-26] MEDS ORDERED: MoRPHine SULFATE 2 MG/ML CARP IV PRN (11:47)
[2024-09-26] MEDS ORDERED: ACETAMINOPHEN 325 MG TAB PO PRN (11:47)
[2024-09-26] MEDS ORDERED: oxyCODONE HCL IR 5 MG TAB (IMMEDIATE RELEASE) PO PRN (11:47)
[2024-09-26] MEDS: FAMOTIDINE/PF 20 MG/2 ML VIAL IV ONE (11:49)
--- NOTE | 2024-09-26 11:52 | Electrocardiogram Report ---
Test Reason : Blood Pressure : */* mmHG Vent. Rate : 81 BPM Atrial Rate : 81 BPM P-R Int : 156 ms QRS Dur : 100 ms QT Int : 370 ms P-R-T Axes : 30 -9 42 degrees QTcB Int : 429 ms Normal sinus rhythm Incomplete right bundle branch block Borderline ECG No previous ECGs available Confirmed by Ezio Adler ([id number]) on 09/26/2024 11:51:45 AM Referred By: REFERRED SELF Confirmed By: Ezio Adler
--- NOTE | 2024-09-26 11:52 | Electrocardiogram Report ---
Test Reason : Blood Pressure : */* mmHG Vent. Rate : 61 BPM Atrial Rate : 61 BPM P-R Int : 180 ms QRS Dur : 96 ms QT Int : 406 ms P-R-T Axes : 39 -15 26 degrees QTcB Int : 408 ms Normal sinus rhythm Minimal voltage criteria for LVH, may be normal variant Abnormal ECG Confirmed by Ezio Adler ([id number]) on 09/26/2024 11:51:55 AM Referred By: REFERRED SELF Confirmed By: Ezio Adler
[2024-09-26 11:54] VITALS: TEMP 98.1
[2024-09-26 13:03] VITALS: BP 153/88; RESP 18; O2SAT 95
--- NOTE | 2024-09-26 13:06 | Anesthesiology Progress Note ---
Date of Service September 26, 2024 Anesthesia Post Procedure Vital Signs Vital Signs: Temp Pulse Pulse Pulse Resp BP BP 09/26/24 13:02 36.7 C 78 18 09/26/24 12:08 78 16 09/26/24 11:53 36.7 C 71 16 09/26/24 11:40 37.0 C 70 14 09/26/24 11:30 69 14 09/26/24 11:20 70 15 09/26/24 11:10 72 16 09/26/24 11:01 36.1 C L 74 13 09/26/24 07:41 36.7 C 65 20 140/83 09/26/24 07:10 61 09/26/24 06:30 36.5 C 65 14 09/26/24 05:30 62 23 09/26/24 05:15 61 18 157/94 H 09/26/24 05:00 60 30 H 146/100 H 09/26/24 04:03 62 24 169/102 H 09/26/24 03:30 69 16 150/99 H 09/26/24 03:18 70 29 H 210/120 H 09/26/24 03:15 81 09/26/24 03:15 37 C 71 16 210/120 H BP Pulse Ox O2 Del Method O2 Flow Rate 09/26/24 13:02 153/88 H 95 Room Air 09/26/24 12:08 121/82 96 Room Air 09/26/24 11:53 129/78 94 Room Air 09/26/24 11:40 126/79 93 Room Air 09/26/24 11:30 123/74 97 Oxymask 4 09/26/24 11:20 122/77 98 Oxymask 4 09/26/24 11:10 122/77 98 Oxymask 6 09/26/24 11:01 129/88 100 Oxymask 10 09/26/24 07:41 97 Room Air 09/26/24 07:10 09/26/24 06:30 127/78 95 Room Air 09/26/24 05:30 95 09/26/24 05:15 09/26/24 05:00 98 09/26/24 04:03 98 09/26/24 03:30 98 09/26/24 03:18 100 09/26/24 03:15 09/26/24 03:15 99 Room Air Transfer of Care Handoff Completed per policy Notes Mental Status: alert / awake / arousable Patient Amnestic to Procedure: Yes Nausea / Vomiting: adequately controlled Pain: adequately controlled Airway Patency, RR, SpO2: stable & adequate BP & HR: stable & adequate Hydration State: stable & adequate Anesthetic Complications: no major complications apparent
[2024-09-26 14:00] VITALS: PULSE 80
--- NOTE | 2024-09-27 16:03 | Discharge Summary ---
Date of Service September 27, 2024 Admission HPI Per Admitting Provider This is a 54-year-old male who presented to the emergency department secondary to epigastric/upper abdominal pain that has been present for several days. The patient notes that the pain seems to be exacerbated after eating and seems to radiate into the left side of his chest. He has had some associated nausea and vomiting but denies any fevers, shakes, or chills. Prior to this symptomatology beginning several days ago he has not noted any postprandial pain in the preceding weeks to months. Patient notes that he has never had any abdominal surgery. I did asked the patient about his past medical history and he denies any known medical problems or taking any medicines. He does admit that he has not seen a doctor in "many years". Patient notes that he does have a history of chewing tobacco but does not smoke cigarettes. He notes that from time to time if he goes up and down steps he does get somewhat short winded. He notes he can walk easily 1 mile on a flat surface without chest pain or shortness of breath. Upon further questioning though, he does note an occasional what he describes as a "twinge" of chest discomfort that only lasts several seconds and self resolves. Patient does have a significant family history of coronary artery diseasehe notes his mother suffered a heart attack when she was in her 30s and ultimately in her 70s from congestive heart failure. Since arrival to the hospital the patient has had labs and imaging which I independent reviewed. A CT scan of the chest showed no evidence of thoracic aortic aneurysm or dissection. There was a gallstone noted near the neck of the gallbladder on this study with some mild gallbladder wall thickening. The chest x-ray did not show any evidence of pneumonia. A gallbladder ultrasound again showed a gallstone in the gallbladder neck. (This study is not formally read by radiology but the technologist performing the study did not note any gallbladder wall thickening or biliary ductal dilatation) labs included CBC were white blood cell count, hemoglobin, hematocrit, platelet count were normal. Chemistry profile showed sodium and potassium as well as the BUN and creatinine were normal. There is no elevation of patient's LFTs or lipase. Patient has had 2 EKGs since arrival to the emergency department neither of which showed any changes indicative of acute ischemia. At the time of my interview the patient was not in any distress but he continued to have some pain in his upper abdomen. Concerning past medical history the patient denies any medical problems Concerning past surgical history he denies any prior surgeries Concerning family history it is significant for coronary artery disease Concerning social history he does not smoke but does use smokeless tobacco Principal Diagnosis acute cholecystitis Discharge Exam Constitutional cooperative; no acute distress Respiratory normal respiratory effort; no respiratory distress Cardiovascular Rate/Rhythm: regular rate Gastrointestinal (Abdomen) Inspection/Auscultation: abdomen not distended Percussion/Palpation: abdomen soft Neurologic moves all extremities Psychiatric Orientation: alert and oriented x 3 Discharge Data Allergies Allergy/AdvReac Type Severity Reaction Status Date / Time No Known Allergies Allergy Unverified 11/08/16 13:08 Consultations 09/26/24 04:41 ED Decision to Admit Stat 09/26/24 05:03 Consult Hospitalist Stat Procedures Performed Operation Date: 09/26/24 07:00 Actual Procedures p Robotic Assisted Laparoscopic Cholecystectomy(Not Applicable) - Ashley Lewis, DO Ordered Studies 09/26/24 03:27 CT angio chest dissec wo/w con Stat 09/26/24 03:53 US gallbladder Stat Hospital Course (1) Biliary colic: This is a 54-year-old male who presented to the emergency department on 09/26/24 secondary to epigastric/upper abdominal pain , see HPI for details. He was found to have cholelithiasis and was admitted to the for hospital care and observation. On 09/26/24 he underwent a laparoscopic cholecystectomy with Dr. Lewis. The patient tolerated the procedure well, see operative report for full details. Post operatively the patient's diet was advanced, pain managed on prn meds, and incisions clean/dry/intact. The patient was deemed stable for discharge to home, given return precautions and follow up recommendations. Total Time Total Time Spent Total Time Spent (In Minutes): 10 Discharge Plan Discharge Items Patient Disposition: Home - Self-Care Reason For Visit: [place] Discharge Diagnosis: robotic cholecystectomy Condition on Discharge: Good Activity: Per Instructions section Lifting: No more than 10 pounds Bathing Comment: may shower starting 09/28/24; no soaking in tubs/pools x 2 weeks Exercise/Sports: Wait until after follow-up appointment Driving/Machine Use: no driving while taking narcotics for pain Non-emergency contact: Surgeon Call non-emergency contact if: you have any medication questions, your pain is not controlled, your pain is unusual for you, you have a fever, your temperature is above 101.5, your wound has increased redness, your wound has increased drainage and your wound pain has increased Follow-up/Referrals: Ashley eLwis, [Physician] - (please call to schedule follow up in clinic within 2 weeks) PCP,NO [Primary Care Provider] - Diet: Regular Addtl Attending Provider Instructions: You have skin glue over your incisions called dermabond. you may shower with this on. It will tend to dissolve and fall off within a couple weeks. Do not pick at the skin glue You may purchase Tylenol and/or Ibuprofen over the counter if needed for additional pain control over the next few days. Take per manufacturers instructions Pending Studies at Discharge: Yes Studies:: surgical pathology Stand-Alone Forms: [facility] Seeding Labs, Smoking Cessation Medications and DC Order Prescriptions: New oxycodone 5 mg tablet 5 - 10 mg PO .[id number] PRN (Reason: pain, for initial therapy, max 6 tabs per day) Qty: 15 0RF Discharge Orders: Discharge Order (Routine); Ordered 09/26/24 Ordered By: Hazel Roe/Other Patient Handouts: Cholecystectomy Dc Admission Data Admit Date/Time: 09/26/24 05:01 Attending Provider: Ashley Lewis Admit Provider: Ashley Lewis Primary Care Provider: PCP,NO Other Providers: Ashley Lewis; Kayla Mcdowell Other Interventions: Discharge Summary Assessment (RN) Last Done: 09/26/24 14:14 Supervising Physician Co-Signing Physician Notes I have seen and examined this patient this am. He will be taken to the OR for robotic/laparoscopic cholecystectomy and all other indicated procedures. The details of the procedure have been explained to him including the risks and benefits. Consent was obtained. Coding Level of Care Code 84921 IN/OBS DISCH 30 MIN/LESS Diagnoses Biliary colic K80.50
--- NOTE | 2024-09-27 20:28 | Coding Query ---
PATHOLOGY To promote full compliance with coding requirements relating to patient care, physician participation is requested in all cases of escrow secretary uncertainty. Please assist us with the question(s) below: FINAL PATHOLOGY: Chronic cholecystitis with cholelithiasis Please review the Pathology report and please document any relevant diagnosis(es) below: [ x ]Final Pathology is clinically significant [ ] Other Diagnosis(es): Thank you Miya SUNSHINE
== END 2024-09-26 15:15 | disposition home or self-care (01) | DRG 419 ==
LOC: ED 03:08 → EDINP 05:01 → 4W 06:03